=== PATIENT | female | born 1955 | race Caucasian/White ===

== ENCOUNTER 2021-06-08 04:49 | Inpatient (IN) ==
[2021-06-08] MEDS ORDERED: Melatonin 3 MG TABLET PO PRN (05:11)
[2021-06-08] MEDS ORDERED: Naloxone 0.4 MG/ML INJ IVP PRN (05:11)
[2021-06-08] MEDS: *HR* HYDROcodone/Acet 5/325 mg TABLET PO PRN ×2 (05:44→13:00)
[2021-06-08 05:59] LABS: Basophils # 0.1 K/mcL (0.0-0.2); Basophils % 0.9 %; Eosinophils # 0.2 K/mcL (0.0-0.6); Eosinophils % 2.1 %; Hematocrit 22.4 % (35.3-44.9); Immature Granulocytes % 0.5 % (0-4); Lymphocytes # 2.1 K/mcL (0.6-4.6); Lymphocytes % 26.8 %; Mean Corpuscular HGB Conc 24.6 g/dL (31.6-35.5); Mean Corpuscular Hemoglobin 16.7 pg (28.0-33.3); Mean Corpuscular Volume 68.1 fL (83.0-100.0); Mean Platelet Volume 9.5 fL (9.4-12.4); Monocytes # 0.9 K/mcL (0.0-1.3); Neutrophils # 4.6 K/mcL (1.6-8.9); Nucleated Red Blood Cells 0.3 /100 WBC (0); Platelet Count 248 K/mcL (140-400); Red Blood Count 3.29 M/mcL (3.82-4.97); Red Cell Distribution Width 21.5 % (11.5-14.5); Segmented Neutrophils % 58.7 %; White Blood Count 7.8 K/mcL (4.3-11.1)
[2021-06-08] MEDS ORDERED: Pantoprazole 40 MG VIAL IVP SCH (06:00)
[2021-06-08 06:08] LABS: INR 1.2; Prothrombin Time 13.7 Seconds (9.4-12.1)
[2021-06-08 06:11] LABS: BUN/Creatinine Ratio 20 (6-26); Blood Urea Nitrogen 11 mg/dL (8-23); Calcium 8.6 mg/dL (8.6-10.3); Carbon Dioxide 31 mEq/L (23-29); Chloride 103 mEq/L (98-107); Glucose 97 mg/dL (70-105); Osmolality,Calculated 287 (280-300); Potassium 3.8 mEq/L (3.5-5.1); Sodium 139 mEq/L (136-145); eGFR For African Americans > 60 (> 60); eGFR For Non-African Americans > 60 (> 60)
[2021-06-08 06:16] LABS: Hemoglobin 5.5 g/dL (11.5-15.4)
[2021-06-08] MEDS ORDERED: 0.9 % Sodium Chloride 250 ML IVC SCH (06:30)
[2021-06-08] MEDS ORDERED: Azithromycin 500 MG in 0.9 % Sodium Chloride 250 ML IVPB SCH (07:00)
[2021-06-08] MEDS ORDERED: MethylPREDNISolone 40 MG/ML VIAL IVP SCH (08:00)
[2021-06-08] MEDS: Ipratropium/Albuterol Neb 3 ML IH SCH ×5 (08:13→23:56)
[2021-06-08] MEDS ORDERED: 0.9 % Sodium Chloride 250 ML ONE ×2 (09:06→17:37)
[2021-06-08] MEDS ORDERED: Lidocaine -MPF 2% 5 ML VIAL ONE (10:07)
[2021-06-08 14:32] LABS: Hemoglobin 6.1 g/dL (11.5-15.4)
[2021-06-08] MEDS: Acetaminophen 325 MG TABLET PO PRN (17:03)
[2021-06-08] MEDS: tiZANidine 4 MG TABLET PO SCH (20:55)
[2021-06-08] MEDS: traZODone 50 MG TABLET PO SCH (20:55)
[2021-06-08] MEDS: Gabapentin 400 MG CAPSULE PO SCH (20:56)
[2021-06-08 22:51] LABS: Hematocrit 27.4 % (35.3-44.9)
[2021-06-08 22:59] LABS: Hemoglobin 7.9 g/dL (11.5-15.4)
[2021-06-08] MEDS ORDERED: diazePAM 10 MG/2 ML SYRINGE IVP ONE (23:28)
[2021-06-08] MEDS ORDERED: *HR* Labetalol 20 MG/4 ML SYRINGE IVP ONE (23:29)
[2021-06-09] MEDS ORDERED: Furosemide 20 MG/2 ML VIAL IVP ONE (00:22)
[2021-06-09 04:04] LABS: Hemoglobin 8.3 g/dL (11.5-15.4)
[2021-06-09 04:05] LABS: Hematocrit 29.5 % (35.3-44.9); Mean Corpuscular HGB Conc 28.1 g/dL (31.6-35.5); Mean Corpuscular Hemoglobin 20.3 pg (28.0-33.3); Mean Corpuscular Volume 72.1 fL (83.0-100.0); Mean Platelet Volume 9.5 fL (9.4-12.4); Platelet Count 204 K/mcL (140-400); Red Blood Count 4.09 M/mcL (3.82-4.97); Red Cell Distribution Width 23.1 % (11.5-14.5); White Blood Count 6.7 K/mcL (4.3-11.1)
[2021-06-09] MEDS: Ipratropium/Albuterol Neb 3 ML IH SCH ×6 (04:06→23:39)
[2021-06-09] MEDS: Acetaminophen 325 MG TABLET PO PRN ×2 (08:27→14:51)
[2021-06-09] MEDS: Gabapentin 400 MG CAPSULE PO SCH ×2 (08:28→22:02)
[2021-06-09] MEDS: tiZANidine 4 MG TABLET PO SCH ×2 (08:28→22:01)
[2021-06-09] MEDS: Aspirin 81 MG TAB.CHEW PO SCH (12:09)
[2021-06-09] MEDS: traZODone 50 MG TABLET PO SCH (22:01)
[2021-06-09] MEDS: *HR* HYDROcodone/Acet 5/325 mg TABLET PO PRN (22:11)
[2021-06-10 02:42] LABS: Red Cell Distribution Width 24.2 % (11.5-14.5)
[2021-06-10 02:44] LABS: Hematocrit 25.2 % (35.3-44.9); Hemoglobin 7.3 g/dL (11.5-15.4); Mean Corpuscular Hemoglobin 20.9 pg (28.0-33.3); Mean Platelet Volume 9.5 fL (9.4-12.4); Platelet Count 193 K/mcL (140-400); White Blood Count 6.5 K/mcL (4.3-11.1)
[2021-06-10 03:03] LABS: Iron 19 mcg/dL (50-170)
[2021-06-10 03:22] LABS: % Iron Saturation 5 % (15-50); Transferrin 285 mg/dL (203-362)
[2021-06-10] MEDS: Ipratropium/Albuterol Neb 3 ML IH SCH ×3 (03:25→11:36)
[2021-06-10] MEDS ORDERED: Iron Sucrose Complex 400 MG in 0.9 % Sodium Chloride 250 ML IVPB ONE (07:51)
[2021-06-10] MEDS: tiZANidine 4 MG TABLET PO SCH ×2 (08:03→22:30)
[2021-06-10] MEDS: Aspirin 81 MG TAB.CHEW PO SCH (08:04)
[2021-06-10] MEDS: Gabapentin 400 MG CAPSULE PO SCH ×2 (08:04→22:30)
[2021-06-10] MEDS: Ondansetron 4 MG/2 ML VIAL IVP PRN (13:28)
[2021-06-10] MEDS ORDERED: Prochlorperazine 10 MG/2 ML VIAL IVP PRN (18:18)
[2021-06-10] MEDS: Acetaminophen 325 MG TABLET PO PRN (18:35)
[2021-06-10] MEDS: traZODone 50 MG TABLET PO SCH (22:30)
[2021-06-10] MEDS ORDERED: 0.9 % Sodium Chloride 1,000 ML IV ONE (23:51)
[2021-06-11 05:09] LABS: Hematocrit 33.3 % (35.3-44.9)
[2021-06-11 05:10] LABS: Hemoglobin 9.1 g/dL (11.5-15.4); Mean Corpuscular HGB Conc 27.3 g/dL (31.6-35.5); Mean Corpuscular Hemoglobin 20.7 pg (28.0-33.3); Mean Corpuscular Volume 75.7 fL (83.0-100.0); Mean Platelet Volume 9.3 fL (9.4-12.4); Platelet Count 224 K/mcL (140-400); Red Cell Distribution Width 25.3 % (11.5-14.5); White Blood Count 10.9 K/mcL (4.3-11.1)
[2021-06-11] MEDS ORDERED: *HR* Dextrose 50 % in Water (Syg) 50 ML SYRINGE IVP PRN (06:23)
[2021-06-11] MEDS ORDERED: Dextrose Gel 15 GM/37.5 ML TUBE PO PRN ×2 (06:23)
[2021-06-11] MEDS ORDERED: D5% in Water 1,000 ML IVC PRN (06:23)
[2021-06-11] MEDS: tiZANidine 4 MG TABLET PO SCH ×2 (07:59→21:13)
[2021-06-11] MEDS: Aspirin 81 MG TAB.CHEW PO SCH (07:59)
[2021-06-11] MEDS: Gabapentin 400 MG CAPSULE PO SCH ×2 (07:59→21:13)
[2021-06-11] MEDS ORDERED: Lidocaine -MPF 2% 5 ML VIAL ONE (13:33)
[2021-06-11] MEDS: Ipratropium/Albuterol Neb 3 ML IH PRN (15:41)
[2021-06-11] MEDS: traZODone 50 MG TABLET PO SCH (21:13)
[2021-06-12] MEDS: Ipratropium/Albuterol Neb 3 ML IH PRN (00:30)
[2021-06-12 04:30] LABS: Mean Platelet Volume 9.4 fL (9.4-12.4)
[2021-06-12 04:32] LABS: Hematocrit 25.5 % (35.3-44.9); Hemoglobin 6.9 g/dL (11.5-15.4); Mean Corpuscular HGB Conc 27.1 g/dL (31.6-35.5); Mean Corpuscular Hemoglobin 20.5 pg (28.0-33.3); Mean Corpuscular Volume 75.7 fL (83.0-100.0); Platelet Count 182 K/mcL (140-400); Red Blood Count 3.37 M/mcL (3.82-4.97); Red Cell Distribution Width 25.8 % (11.5-14.5); White Blood Count 5.6 K/mcL (4.3-11.1)
[2021-06-12] MEDS: Gabapentin 400 MG CAPSULE PO SCH ×2 (09:36→22:02)
[2021-06-12] MEDS: tiZANidine 4 MG TABLET PO SCH ×2 (09:36→22:02)
[2021-06-12] MEDS: Ondansetron 4 MG/2 ML VIAL IVP PRN (09:56)
[2021-06-12] MEDS: *HR* HYDROcodone/Acet 5/325 mg TABLET PO PRN (17:14)
[2021-06-12 19:07] LABS: Adenovirus Not Detected (Not Detect); Bordetella Pertussis Not Detected (Not Detect); Chlamydophila pneumoniae Not Detected (Not Detect); Coronavirus 229E Not Detected (Not Detect); Coronavirus HKU1 Not Detected (Not Detect); Coronavirus NL63 Not Detected (Not Detect); Coronavirus OC43 Not Detected (Not Detect); Human Metapneumovirus Not Detected (Not Detect); Human Rhinovirus/Enterovirus Not Detected (Not Detect); Influenza A Subtype 2009 H1 Not Detected (Not Detect); Influenza B Not Detected (Not Detect); Mycoplasma pneumoniae Not Detected (Not Detect); Parainfluenza Virus 1 Not Detected (Not Detect); Parainfluenza Virus 2 Not Detected (Not Detect); Parainfluenza Virus 3 Not Detected (Not Detect); Parainfluenza Virus 4 Not Detected (Not Detect); Respiratory Syncytial Virus Not Detected (Not Detect); SARS-CoV-2 Not Detected (Not Detect)
[2021-06-12] MEDS: traZODone 50 MG TABLET PO SCH (22:01)
[2021-06-13 04:12] LABS: Red Cell Distribution Width 25.5 % (11.5-14.5)
[2021-06-13 04:14] LABS: Hematocrit 31.9 % (35.3-44.9); Hemoglobin 8.9 g/dL (11.5-15.4); Mean Corpuscular HGB Conc 27.9 g/dL (31.6-35.5); Mean Corpuscular Hemoglobin 21.8 pg (28.0-33.3); Mean Corpuscular Volume 78.2 fL (83.0-100.0); Mean Platelet Volume 9.6 fL (9.4-12.4); Platelet Count 183 K/mcL (140-400); Red Blood Count 4.08 M/mcL (3.82-4.97); White Blood Count 6.5 K/mcL (4.3-11.1)
[2021-06-13 04:25] LABS: BUN/Creatinine Ratio 22 (6-26); Blood Urea Nitrogen 10 mg/dL (8-23); Calcium 8.5 mg/dL (8.6-10.3); Carbon Dioxide 34 mEq/L (23-29); Chloride 105 mEq/L (98-107); Glucose 87 mg/dL (70-105); Osmolality,Calculated 282 (280-300); Potassium 4.1 mEq/L (3.5-5.1); Sodium 137 mEq/L (136-145); eGFR For African Americans > 60 (> 60); eGFR For Non-African Americans > 60 (> 60)
[2021-06-13] MEDS: tiZANidine 4 MG TABLET PO SCH ×2 (08:33→19:44)
[2021-06-13] MEDS: Gabapentin 400 MG CAPSULE PO SCH ×2 (08:34→19:44)
[2021-06-13] MEDS: traZODone 50 MG TABLET PO SCH (19:44)
[2021-06-13] MEDS: Ipratropium/Albuterol Neb 3 ML IH PRN (20:03)
[2021-06-14] MEDS: tiZANidine 4 MG TABLET PO SCH ×2 (07:49→20:11)
[2021-06-14] MEDS: Gabapentin 400 MG CAPSULE PO SCH ×2 (07:49→20:11)
[2021-06-14 09:33] LABS: Basophils % 0.7 %; Eosinophils # 0.2 K/mcL (0.0-0.6); Eosinophils % 2.9 %; Hematocrit 36.6 % (35.3-44.9); Hemoglobin 9.9 g/dL (11.5-15.4); Immature Granulocytes % 0.5 % (0-4); Lymphocytes # 1.2 K/mcL (0.6-4.6); Lymphocytes % 21.1 %; Mean Corpuscular Hemoglobin 21.4 pg (28.0-33.3); Mean Platelet Volume 8.9 fL (9.4-12.4); Monocytes # 0.6 K/mcL (0.0-1.3); Monocytes % 10.9 %; Neutrophils # 3.6 K/mcL (1.6-8.9); Platelet Count 201 K/mcL (140-400); Red Blood Count 4.63 M/mcL (3.82-4.97); Red Cell Distribution Width 26.7 % (11.5-14.5); Segmented Neutrophils % 63.9 %; White Blood Count 5.6 K/mcL (4.3-11.1)
[2021-06-14 09:48] LABS: Alanine Aminotransferase 28 Units/L (7-52); Albumin 3.3 g/dL (3.5-5.7); Albumin/Globulin Ratio 1.2 (1.1-2.2); Alkaline Phosphatase 64 Units/L (34-104); Aspartate Amino Transferase 24 Units/L (13-39); BUN/Creatinine Ratio 17 (6-26); Bilirubin,Total 0.5 mg/dL (0.3-1.0); Blood Urea Nitrogen 7 mg/dL (8-23); Calcium 9.1 mg/dL (8.6-10.3); Carbon Dioxide 37 mEq/L (23-29); Chloride 99 mEq/L (98-107); Globulin 2.7 g/dL (2.4-3.5); Glucose 95 mg/dL (70-105); Osmolality,Calculated 284 (280-300); Sodium 138 mEq/L (136-145); eGFR For African Americans > 60 (> 60); eGFR For Non-African Americans > 60 (> 60)
[2021-06-14 09:51] LABS: Anisocytosis 2+ (Not Present); Polychromasia 2+ (Not Present); Schistocytes 1+ (Not Present)
[2021-06-14 09:52] LABS: Platelet Estimate Normal (Normal); Stomatocytes 2+ (Not Present)
[2021-06-14] MEDS ORDERED: E-Z-PAQUE (BARIUM SULF) SUSP 1 BOTTLE PO ONE (10:38)
[2021-06-14] MEDS ORDERED: E-Z-HD (BARIUM SULF) SUSPENSION PO ONE (10:38)
[2021-06-14] MEDS ORDERED: polyethylene glycoL 3350 17 GM POWD.PACK PO ONE (17:45)
[2021-06-14] MEDS: traZODone 50 MG TABLET PO SCH (20:11)
[2021-06-14] MEDS: *HR* HYDROcodone/Acet 5/325 mg TABLET PO PRN (23:28)
[2021-06-14] MEDS ORDERED: *HR* LORazepam 2 MG/ML VIAL IVP ONE (23:31)
[2021-06-15 02:54] LABS: Basophils % 0.6 %; Eosinophils # 0.2 K/mcL (0.0-0.6); Eosinophils % 2.6 %; Hematocrit 31.2 % (35.3-44.9); Hemoglobin 8.8 g/dL (11.5-15.4); Immature Granulocytes % 0.6 % (0-4); Lymphocytes # 1.3 K/mcL (0.6-4.6); Lymphocytes % 20.1 %; Mean Corpuscular HGB Conc 28.2 g/dL (31.6-35.5); Mean Corpuscular Hemoglobin 22.2 pg (28.0-33.3); Mean Corpuscular Volume 78.8 fL (83.0-100.0); Mean Platelet Volume 8.9 fL (9.4-12.4); Monocytes # 0.8 K/mcL (0.0-1.3); Monocytes % 12.1 %; Neutrophils # 4.1 K/mcL (1.6-8.9); Platelet Count 195 K/mcL (140-400); Red Blood Count 3.96 M/mcL (3.82-4.97); White Blood Count 6.4 K/mcL (4.3-11.1)
[2021-06-15 03:16] LABS: Alanine Aminotransferase 29 Units/L (7-52); Albumin 3.1 g/dL (3.5-5.7); Albumin/Globulin Ratio 1.3 (1.1-2.2); Alkaline Phosphatase 70 Units/L (34-104); Aspartate Amino Transferase 25 Units/L (13-39); BUN/Creatinine Ratio 32 (6-26); Bilirubin,Total 0.4 mg/dL (0.3-1.0); Blood Urea Nitrogen 12 mg/dL (8-23); Calcium 8.7 mg/dL (8.6-10.3); Carbon Dioxide 35 mEq/L (23-29); Chloride 101 mEq/L (98-107); Globulin 2.3 g/dL (2.4-3.5); Glucose 99 mg/dL (70-105); Osmolality,Calculated 284 (280-300); Sodium 137 mEq/L (136-145); Total Protein 5.4 g/dL (6.4-8.9); eGFR For African Americans > 60 (> 60); eGFR For Non-African Americans > 60 (> 60)
[2021-06-15 03:18] LABS: Anisocytosis 2+ (Not Present); Hypochromasia Present (Not Present)
[2021-06-15 03:19] LABS: Platelet Estimate Normal (Normal); Polychromasia 1+ (Not Present)
[2021-06-15] MEDS: Gabapentin 400 MG CAPSULE PO SCH ×2 (07:59→20:57)
[2021-06-15] MEDS: tiZANidine 4 MG TABLET PO SCH ×2 (07:59→20:57)
[2021-06-15] MEDS: Ipratropium/Albuterol Neb 3 ML IH PRN (14:00)
[2021-06-15] MEDS: traZODone 50 MG TABLET PO SCH (20:57)
[2021-06-15] MEDS: *HR* HYDROcodone/Acet 5/325 mg TABLET PO PRN (22:27)
[2021-06-16 06:22] LABS: Basophils % 1.1 %; Hematocrit 34.4 % (35.3-44.9); Immature Granulocytes % 0.4 % (0-4)
[2021-06-16 06:23] LABS: Basophils # 0.1 K/mcL (0.0-0.2); Eosinophils # 0.2 K/mcL (0.0-0.6); Eosinophils % 3.5 %; Hemoglobin 9.5 g/dL (11.5-15.4); Lymphocytes # 2.4 K/mcL (0.6-4.6); Lymphocytes % 41.6 %; Mean Corpuscular HGB Conc 27.6 g/dL (31.6-35.5); Mean Corpuscular Hemoglobin 22.2 pg (28.0-33.3); Mean Corpuscular Volume 80.6 fL (83.0-100.0); Mean Platelet Volume 9.6 fL (9.4-12.4); Monocytes # 0.8 K/mcL (0.0-1.3); Monocytes % 13.8 %; Platelet Count 263 K/mcL (140-400); Red Blood Count 4.27 M/mcL (3.82-4.97); Red Cell Distribution Width 28.3 % (11.5-14.5); Segmented Neutrophils % 39.6 %; White Blood Count 5.7 K/mcL (4.3-11.1)
[2021-06-16 06:24] LABS: Neutrophils # 2.3 K/mcL (1.6-8.9)
[2021-06-16 06:35] LABS: Alanine Aminotransferase 23 Units/L (7-52); Albumin 3.2 g/dL (3.5-5.7); Albumin/Globulin Ratio 1.2 (1.1-2.2); Alkaline Phosphatase 60 Units/L (34-104); Aspartate Amino Transferase 15 Units/L (13-39); BUN/Creatinine Ratio 18 (6-26); Bilirubin,Total 0.4 mg/dL (0.3-1.0); Blood Urea Nitrogen 9 mg/dL (8-23); Carbon Dioxide 37 mEq/L (23-29); Chloride 99 mEq/L (98-107); Globulin 2.6 g/dL (2.4-3.5); Glucose 86 mg/dL (70-105); Osmolality,Calculated 284 (280-300); Potassium 4.2 mEq/L (3.5-5.1); Sodium 138 mEq/L (136-145); Total Protein 5.8 g/dL (6.4-8.9); eGFR For African Americans > 60 (> 60); eGFR For Non-African Americans > 60 (> 60)
[2021-06-16 07:22] LABS: Anisocytosis 2+ (Not Present); Platelet Estimate Normal (Normal); Poikilocytosis 1+ (Not Present); Polychromasia 1+ (Not Present)
[2021-06-16] MEDS: Gabapentin 400 MG CAPSULE PO SCH (08:21)
[2021-06-16] MEDS: tiZANidine 4 MG TABLET PO SCH (08:21)
[2021-06-16] MEDS: *HR* HYDROcodone/Acet 5/325 mg TABLET PO PRN (10:17)
[2021-06-16 15:00] VITALS: BP 136/68; PULSE 69; TEMP 97.6; O2SAT 96
== END 2021-06-16 17:11 | disposition home health service (06) | DRG 811 ==
LOC: 3ANU → SUATTDRO 04:49
PROVIDERS: ADMIT Internal Medicine; ATTEND Registered Nurse
PROC: ENDOEBX (2021-06-08 09:30)
PROC: ENDOCBX (2021-06-11 14:45)